=== PATIENT | female | born 1960 | race Caucasian/White ===

== ENCOUNTER 2022-10-05 18:40 | Emergency (ER) | payer OTHER, SELFPAY ==
--- NOTE | ~2022-10-05 | XR_ITS ---
EXAMINATION: XR hip RT 2V w AP pelvis INDICATION: Right hip pain TECHNIQUE: AP view of the pelvis and two views of the right hip are obtained. COMPARISON: None available FINDINGS: There is antegrade intramedullary lindsay and interlocking intratrochanteric screw fixation of the right femur. No acute fracture is identified. There are old healed fractures of the pubic rami. There is heterotopic calcification of the right hip. IMPRESSION: 1. No acute osseous abnormality. Reviewed, dictated and finalized at location F. CUTTER
[2022-10-05 18:47] VITALS: BP 178/91; PULSE 91; RESP 18; TEMP 36.9; O2SAT 98
--- NOTE | 2022-10-05 22:00 | ED.GENADULT ---
HPI - General Adult General Chief complaint: Extremity Injury, Lower Stated complaint: injured right leg Time Seen by Provider: 10/05/22 21:00 History of Present Illness HPI narrative: 62-year-old female presenting to the emergency department for evaluation of right hip pain. Patient states approximately 6 days ago she had a fall and states that she is having worsening right hip pain. Patient states she is able to ambulate and patient was able to ambulate into the ED without assistance. Patient reports she has a lindsay in her leg from a previous fracture. Related Data Allergies Allergy/AdvReac Type Severity Reaction Status Date / Time erythromycin base Allergy Hives Verified 10/05/22 22:14 Review of Systems Review of Systems: CONSTITUTIONAL: Denies fever, chills, or sweats. EYES: Denies visual changes, redness, or discharge. ENT: Denies rhinorrhea, congestion, sore throat, or otalgia. CARDIOVASCULAR: Denies chest pain, palpitations, or edema. RESPIRATORY: Denies cough or dyspnea. GASTROINTESTINAL: Denies abdominal pain, nausea, vomiting, or diarrhea. GENITOURINARY: Denies dysuria or hematuria. SKIN: Denies rash or itching. MUSCULOSKELETAL: See HPI NEUROLOGIC: Denies headache, numbness, or weakness. Exam Narrative: APPEARANCE: Well appearing, no pain, no distress, well-nourished. HEAD: normocephalic, atraumatic. EYES: PERRLA/EOMI, conjunctivae clear. NOSE: Normal no drainage NECK: Supple. No adenopathy, no masses. RESPIRATORY: Airway patent, respirations nonlabored. Clear to auscultation bilaterally, no rales, rhonchi, wheezing. CARDIOVASCULAR: Regular rate and rhythm without murmurs rubs or gallops. ABDOMINAL: Soft, nontender, nondistended, normal bowel sounds MUSCULOSKELETAL: No ecchymosis. Normal range of motion. Reproducible right hip pain to palpation. Normal range of motion. NEURO: Alert. Cranial nerves II through XII intact. Grossly intact SKIN: Warm, dry. Normal Color Course Course Emergency Course: X-ray shows no acute fracture or dislocation. Patient was able to ambulate without issue. Patient does have reproducible tenderness to palpation. Suspect muscular contusion over fracture with normal radiographs. Patient was provided Flexeril for pain control and encouraged of close follow-up with a primary care physician. Patient was educated on reasons to return to the emergency room. All questions and concerns were addressed. Vital Signs Vital signs: Vital Signs Temperature 98.4 F 10/05/22 18:47 Pulse Rate 91 10/05/22 18:47 Respiratory Rate 18 10/05/22 18:47 Blood Pressure 178/91 H 10/05/22 18:47 Pulse Oximetry 98 10/05/22 18:47 Oxygen Delivery Room Air 10/05/22 18:47 Temperature 98.4 F 10/05/22 18:47 Pulse Rate 87 10/05/22 22:16 Respiratory Rate 16 10/05/22 22:16 Blood Pressure 202/116 H 10/05/22 22:16 Pulse Oximetry 100 10/05/22 22:16 Oxygen Delivery Room Air 10/05/22 18:47 Medical Decision Making Vital Signs Vital Signs: Vital Signs Temperature 98.4 F 10/05/22 18:47 Pulse Rate 91 10/05/22 18:47 Respiratory Rate 18 10/05/22 18:47 Blood Pressure 178/91 H 10/05/22 18:47 Pulse Oximetry 98 10/05/22 18:47 Oxygen Delivery Room Air 10/05/22 18:47 Temperature 98.4 F 10/05/22 18:47 Pulse Rate 87 10/05/22 22:16 Respiratory Rate 16 10/05/22 22:16 Blood Pressure 202/116 H 10/05/22 22:16 Pulse Oximetry 100 10/05/22 22:16 Oxygen Delivery Room Air 10/05/22 18:47 Imaging Data Radiologist's impression: Impressions Hip/Pelvis X-Ray 10/05/22 21:55 IMPRESSION: 1. No acute osseous abnormality. Discharge Plan Discharge Clinical Impression: Contusion of hip, right Patient Disposition: Home, Self-Care Condition: Stable Instructions: Antibiotic Form Additional Instructions: Tylenol and ibuprofen for pain control. Flexeril for muscle spasm. Have close follow-up with your primary care physicia
[2022-10-05 22:16] VITALS: BP 202/116; PULSE 87; RESP 16; O2SAT 100
--- NOTE | 2022-10-05 22:18 | PC.NURSE ---
Pt reporting nausea and so sick with previous Toradol IM reaction approximately 6 years ago but pt wants to try medication again. Consent received for for medication administration.
[2022-10-05] MEDS: KETOROLAC 30 MG/ML VIAL (*BKC) IM (22:24)
[2022-10-05] MEDS: ONDANSETRON HCL ODT 4 MG TABLET PO (22:25)
[2022-10-05 22:42] VITALS: BP 172/110; PULSE 80; RESP 16; O2SAT 100
== END 2022-10-05 22:43 | disposition home or self-care (01) ==
PROVIDERS: Emergency Provider Emergency Medicine; PCP Pediatrics
DX: S70.01XA Contusion of right hip, initial encounter (principal); W19.XXXA Unspecified fall, initial encounter
CPT/HCPCS: 73502; 96372; 99283; A9270; J1885

== ENCOUNTER 2023-12-17 17:51 | Inpatient (IN) | payer MEDICAID, SELFPAY ==
[2023-12-17] VITALS (23 sets, daily range): BP systolic 115–171; BP diastolic 53–82; PULSE 92–130; RESP 18–34; TEMP 36.9–37.6; O2SAT 91–100
--- NOTE | ~2023-12-17 | XR_ITS ---
Supine and upright views of the abdomen Clinical history: NG tube placement Findings: NG tube in satisfactory position. Bowel gas pattern is nonspecific. No evidence for obstruc tion or free air. No abnormal mass lesion or calcification is seen. Osseous structures are intact. Impression: NG tube in satisfactory position. Reviewed, dictated and finalized at location . Impression: NG tube in satisfactory position.
--- NOTE | ~2023-12-17 | XR_ITS ---
Portable chest x-ray Comparison: 12/18/2023 at 4:10 AM Clinical History: Cardiac arrest Findings: Endotracheal tube, NG tube, and right IJ line are in place. Extensive right upper lobe pne umonia with mild right lower lobe pneumonia is again present. Minimal haziness left lung base. Cardi omediastinal silhouette is stable. Bones and soft tissues are unremarkable. Impression: Stable stable support tubes. Stable extensive right lung pneumonia, especially right upper lobe. Mild haziness left lung base could reflect additional pneumonia. Reviewed, dictated and finalized at location . Impression: Stable stable support tubes. Stable extensive right lung pneumonia, especially right upper lobe. Mild haziness left lung base could reflect additional pneumonia.
--- NOTE | ~2023-12-17 | XR_ITS ---
Portable chest x-ray Comparison: 12/17/2023 Clinical History: Tube placement Findings: Endotracheal tube and NG tube are in satisfactory positions. There is extensive right lung consolidation, with focal airspace disease in the retrocardiac region. Cardiomediastinal silhouette is stable. Bones and soft tissues are unremarkable. Impression: Support tubes, as above. Extensive right lung pneumonia. Probable focal pneumonia left lower lobe. Reviewed, dictated and finalized at location . Impression: Support tubes, as above. Extensive right lung pneumonia. Probable focal pneumonia left lower lobe.
--- NOTE | ~2023-12-17 | CT_ITS ---
EXAMINATION: CT abdomen pelvis wo con DATE: 12/18/2023 08:51 INDICATION: Abdominal distention TECHNIQUE: Computed tomography (CT) of the abdomen and pelvis was performed without intravenous contr ast. Automated exposure control and iterative reconstruction technique were employed. The dose-length product was 321.78 mGy-cm. COMPARISON: Chest CT dated 12/27/2023 FINDINGS: Significant interval development of consolidation without significant associated volume loss in the r ight lower lobe, to lesser degree in the left lower lobe and increase in more patchy airspace opacity right middle lobe consistent with progression of multifocal pneumonia. Calcified right lower lobe no dule along with calcified right hilar lymph nodes and a small splenic calcification, all consistent w ith old granulomatous disease. No pleural effusion. Heart size is normal. No pericardial effusion. Nasogastric tube tip in the body of the stomach. Cholecystectomy clips at the gallbladder fossa. Live r and pancreas appear normal. There are heterogeneous bilateral delayed nephrograms with excreted con trast in the bilateral renal collecting systems likely representing residual contrast from CT study p erformed over 12 hours prior consistent with renal insufficiency. There is increased density with ill -defined margins and surrounding stranding in the region of the left adrenal gland with additional st randing also seen in the region of the obscured right adrenal gland. There is moderate amount of stoo l scattered throughout the colon primarily in the cecum. No bowel obstruction. Taylor catheter and bayron e excreted contrast within the decompressed bladder. Uterus and bilateral adnexa are unremarkable. No free intraperitoneal gas or fluid. No pathologically enlarged abdominal or pelvic lymphadenopathy. T here is streak artifact associated with an antegrade intramedullary lindsay and interlocking femoral neck screw fixation at the proximal right femur. IMPRESSION: 1. Interval progression of multifocal pneumonia in the right middle and bilateral lower lobes. 2. Thickening of at least the left adrenal gland and bilateral . Renal stranding which suggests nonsp ecific adrenal congestion which can be seen in setting of adrenal insufficiency and can't proceed adr enal hemorrhage. In setting etiologies can include sepsis, disseminated intravascular coagulation (DI C), anticoagulation and less likely adrenal thrombosis given the bilaterality. 3. Bilateral heterogeneous persistent delayed nephrograms without evident obstruction which can be se en in the setting of systemic hypotension, sepsis, acute tubular necrosis, bilateral renal artery joel nosis or renal vein thrombosis. Reviewed, dictated and finalized at location B. IMPRESSION: 1. Interval progression of multifocal pneumonia in the right middle and bilater al lower lobes. 2. Thickening of at least the left adrenal gland and bilateral . Renal strandin g which suggests nonspecific adrenal congestion which can be seen in setting of adrenal insufficiency and can't proceed adrenal hemorrhage. In setting etiolog ies can include sepsis, disseminated intravascular coagulation (DIC), anticoagu lation and less likely adrenal thrombosis given the bilaterality. 3. Bilateral heterogeneous persistent delayed nephrograms without evident obstr uction which can be seen in the setting of systemic hypotension, sepsis, acute tubular necrosis, bilateral renal artery stenosis or renal vein thrombosis.
--- NOTE | ~2023-12-17 | XR_ITS ---
EXAMINATION: XR chest 1V portable DATE: 12/17/2023 18:25 INDICATION: Low oxygen saturation. TECHNIQUE: A single frontal view of the chest was obtained on 2 radiographs. COMPARISON: None. FINDINGS: There are airspace opacities in right lung, worst in the mid and upper lung zones, consiste nt with pneumonia. No pleural effusion or pneumothorax. The heart size is normal. IMPRESSION: 1. Right-sided pneumonia. Reviewed, dictated and finalized at location E. IMPRESSION: 1. Right-sided pneumonia.
--- NOTE | ~2023-12-17 | CT_ITS ---
EXAMINATION: CTA chest PE protocol DATE: 12/17/2023 20:18 CDT INDICATION: Dyspnea. Pneumonia. TECHNIQUE: Computed tomographic angiography (CTA) of the chest was performed with 100 mL Omnipaque-35 0 intravenous contrast. The dose-length product was 149.84 mGy-cm. Maximum intensity projection 3D-re constructions of the aorta and other arteries were constructed by the technologist on a separate work station. COMPARISON: None. FINDINGS: Study is technically adequate. Evaluation of the lower lobe subsegmental pulmonary arteries limited by motion artifact. No thoracic lymphadenopathy. No evidence for aortic aneurysm or dissecti on. Heart size normal. No significant pleural or pericardial effusion. There is emphysema. There is e xtensive right upper lobe airspace consolidation as well as patchy airspace disease of the right midd le and bilateral lower lobes, consistent with multifocal pneumonia. Mild wedge-shaped deformity of mu ltiple upper thoracic vertebra, likely chronic. IMPRESSION: 1. Multifocal bilateral pneumonia, most confluent in the right upper lobe. 2: No large central pulmonary embolism. Evaluation of lower lobe peripheral pulmonary arteries limit ed by motion. Reviewed, dictated and finalized at location A. IMPRESSION: 1. Multifocal bilateral pneumonia, most confluent in the right upper lobe. 2: No large central pulmonary embolism. Evaluation of lower lobe peripheral pu lmonary arteries limited by motion.
--- NOTE | ~2023-12-17 | XR_ITS ---
Portable chest x-ray Comparison: 12/18/2023 at 3:04 AM Clinical History: Line placement Findings: Endotracheal tube, NG tube, and right IJ line are in satisfactory positions. Extensive den se right upper lobe consolidation is present. There is more patchy consolidation the right lower lobe , right middle lobe, and in the retrocardiac region. Cardiomediastinal silhouette is stable. Bones a nd soft tissues are unremarkable. Impression: Extensive right lung pneumonia, especially right upper lobe, with additional focal involvement in the left lower lobe. Support tubes, as above. No pneumothorax. Reviewed, dictated and finalized at location M. Impression: Extensive right lung pneumonia, especially right upper lobe, with additional fo lucy involvement in the left lower lobe. Support tubes, as above. No pneumothorax.
--- NOTE | ~2023-12-17 | CT_ITS ---
EXAMINATION: CT brain wo con DATE: 12/18/2023 08:51 INDICATION: Anisocoria. TECHNIQUE: Computed tomography (CT) of the head was performed without intravenous contrast. The mA wa s adjusted according to patient size. Iterative reconstruction technique was employed. The dose-lengt h product was 605.33 mGy-cm. COMPARISON: None FINDINGS: There is no intracranial hemorrhage, acute infarction, or abnormal intracranial mass lesion . There is a small old infarct in left frontal lobe. The ventricles are normal in size. There is a peña rgical clip in left suprasellar cistern. There is an embolization coil mass in left suprasellar ciste rn. There is mild mucosal thickening in the ethmoid sinuses. There are changes of left frontal latera l craniotomy. There is dehiscence of lateral wall and roof of left orbit. There are likely changes of ocular lens replacement surgeries. There is dehiscence of the anterior and posterior sandoval of the le ft frontal sinus, which is opacified. The mastoid air cells are normal. IMPRESSION: 1. 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 Reviewed, dictated and finalized at location A.
--- NOTE | 2023-12-17 17:59 | ECG_ITS ---
Measurements Intervals [place] Rate: 127 P: 68 OH: 120 QRS: 71 QRSD: 94 T: -69 QT: 260 AVG RR 472 QTc: 335 QTcB 378 QTcF 333 Interpretive Statements SINUS TACHYCARDIA ST DEVIATION AND MODERATE T-WAVE ABNORMALITY, CONSIDER LATERAL ISCHEMIA [-01+ mV T WAVE IN I/aVL/V5/V6] ST DEVIATION AND MODERATE T-WAVE ABNORMALITY, CONSIDER INFERIOR ISCHEMIA [-01+ mV T WAVE IN II/aVF] ABNORMAL ECG SEE SCANNED COPY FOR SIGNATURE MTDD
[2023-12-17 18:07] LABS: Hematocrit 40.3 % (37.0-47.0); Hemoglobin 12.7 g/dL (12.0-15.0); Mean Corpuscular HGB Conc 31.5 g/dl (32-36); Mean Corpuscular Hemoglobin 32.6 pg (26-34); Mean Corpuscular Volume 103.3 fl (80-100); Mean Platelet Volume 9.5 fl (7.4-10.4); Platelet Count Result 339 k/mm3 (150-375); Red Cell Distribution Width 14.2 % (11.5-14.5); White Blood Count 13.4 K/mm3 (4.5-10.0)
[2023-12-17 18:18] LABS: Alanine Aminotransferase 21 U/L (6-35); Albumin Level 4.3 g/dL (3.5-5.1); Alkaline Phosphatase 118 U/L (38-126); Anion Gap 15 mmol/L (4-12); Aspartate Amino Transferase 44 U/L (14-36); Bilirubin,Total 0.6 mg/dL (0.2-1.3); Blood Urea Nitrogen 30 mg/dL (7-17); Calcium 9.6 mg/dL (8.4-10.2); Carbon Dioxide 19 mmol/L (22-30); Chloride 105 mmol/L (98-107); Estimated CRCL calculation 48 ml/min; Estimated Glomerular Filt Rate > 60; Glucose 123 mg/dL (65-110); Magnesium 1.8 mg/dL (1.6-2.3); Sodium 139 mmol/L (137-145)
[2023-12-17 18:19] LABS: Alveolar/Arterial O2 Gradient 595.9 mmHg; Base Excess ABG -6.8 mEq/l (+/-2.0); Carboxyhemoglobin 0.9 % THb (0-2.0); Device NON-INVASIVE VENT; Fractional Inspired Oxygen 100 %; HCO3 ABG 20.3 mEq/l (22.0-26.0); Methemoglobin ABG 0.3 %THb (0-1.5); Modified Allen's Test Pass; Oxygen Content ABG 17.3 %vol (16.0-22.0); Oxygen Saturation ABG 91.5 % (95.0-100.0); Oxyhemoglobin 90.5 % THb (90.0-100.0); PCO2 ABG 46.9 mmHg (35.0-45.0); PO2 ABG 70.2 mmHg (80.0-100.0); Reduced Hemoglobin 8.3 %THb (0-5.0); Site Drawn LEFT RADIAL; Total Hemoglobin 13.6 g/dL (12.0-18.0); pH ABG 7.255 (7.350-7.450)
[2023-12-17] MEDS: IPRATROPIUM BR 0.02% INH SOLN 0.5 MG/2.5 ML VIAL 1 MG INHALATION (18:26)
[2023-12-17] MEDS: ALBUTEROL SULFATE NEB 2.5 MG/3 ML INH 15 MG INHALATION (18:26)
[2023-12-17 18:30] LABS: NT Pro B Type Natriuretic Pept 2850 pg/mL (19.9-100); Troponin I < 0.012 ng/mL (0.000-0.034)
[2023-12-17] MEDS: methylPREDNISolone SOD SUCC 125 MG VIAL 40 MG IV PUSH (18:30)
[2023-12-17 18:35] LABS: D Dimer 1.74 ug/mL (<0.48)
[2023-12-17 18:43] LABS: Band Neutrophils Percent 28 % (0-6); Eosinophils Absolute Manual 0.13 K/mm3 (0.02-0.50); Eosinophils Percent Manual 1 % (0-4); Lymphocytes Absolute Manual 2.94 K/mm3 (1.1-4.5); Lymphocytes Percent Manual 22 % (18-44); Monocytes Absolute Manual 0.67 K/mm3 (0.1-0.90); Monocytes Percent Manual 5 % (3-9); Neutrophils Absolute Manual 9.64 K/mm3 (1.7-7.2); Neutrophils Percent Manual 44 % (46-73); Total Cells Counted 100
[2023-12-17 18:45] LABS: Platelet Estimate Adequate (Adequate); Schistocytes None Seen
[2023-12-17 19:26] LABS: Influenza A QL RT-PCR Negative (Negative); Influenza B QL RT-PCR Negative (Negative); RSV RNA, RT-PCR Negative (Negative); SARS-CoV-2 RNA PCR Negative (Negative)
--- NOTE | 2023-12-17 19:40 | PC.NURSE ---
report to Deborah SANFORD
[2023-12-17] MEDS: DOXYCYCLINE 100 MG/NS 100 ML 100 MG/100 ML BAG IVPB (20:10)
--- NOTE | 2023-12-17 20:16 | ED.SOB ---
HPI - SOB/Dyspnea General Chief Complaint: Shortness of Breath/Dyspnea Stated Complaint: respiratory distress Time Seen by Provider: 12/17/23 17:59 History of Present Illness HPI Narrative: patient presents with shortness of breath that started today, with the cough. She states before this she had no issues, she does occasionally smoke but has no history of COPD or heart failure. When EMS arrived they were unable to detect a good oxygen saturation and immediately post start on CPAP, and were unable to get her oxygen above 85% Related Data Allergies Allergy/AdvReac Type Severity Reaction Status Date / Time erythromycin base Allergy Hives Verified 12/17/23 18:35 Review of Systems Review of Systems: CONST: No fever. HEENT: No sore throat C/V: chest tightness RESP: cough and trouble breathing GI: no abdominal pain : No dysuria. M/S: No joint pain. SKIN: No rash. NEURO: [No headache or focal numbness or weakness] PSYCH: [No depression] Exam Narrative: EXAMINATION OF ORGAN SYSTEMS/BODY AREAS: Constitutional: Vital signs per nursing GENERAL: extremely dyspneic HEAD: Normal with no signs of head trauma. EYES: EOMI, conjunctiva normal ENT: Hearing grossly intact LUNGS: the respirations, dyspneic, crackles and diminished lung sounds bilaterally worse on right side HEART: [Regular rate and rhythm] ABD: [Soft], [nontender to palpation] EXT: Normal range of motion SKIN: [No rashes or lesions.] NEURO: [Alert and oriented x 3. No gross focal sensory or strength deficits.] PSYCH: Normal affect Course Vital Signs Vital signs: Vital Signs Temperature 98.5 F 12/17/23 17:49 Pulse Rate 130 H 12/17/23 17:49 Respiratory Rate 28 H 12/17/23 17:49 Blood Pressure 141/75 H 12/17/23 17:49 Pulse Oximetry 95 12/17/23 17:49 Oxygen Delivery Room Air 12/17/23 17:49 Temperature 98.6 F 12/17/23 18:00 Pulse Rate 92 12/17/23 18:45 Respiratory Rate 26 H 12/17/23 20:09 Blood Pressure 115/66 12/17/23 18:45 Pulse Oximetry 95 12/17/23 18:45 Oxygen Delivery BiPAP 12/17/23 20:09 MDM - SOB/Dyspnea MDM Narrative Medical decision making narrative: patient presenting with cough and shortness of breath, she was initially saturating only 85% on CPAP, she was immediately placed on monitors, IV access obtained, and transferred to [facility] here, and on maximum of oxygen is saturating 95%. I am concerned for possible PE, pneumonia, pneumothorax, possibly new onset heart failure. Chest x-ray my own independent interpretation showing opacity to the right lung. ABG does show acidosis with some CO2 retention, D-dimer is elevated so CT PE is obtained which is thankfully normal but does show large amount of pneumonia to the right lung. EKG here shows sinus tachycardia at rate of 127, no obvious ST elevations or depressions concerning for ischemia. Normal axis. Normal ME, QRS, QTC. I did update the patient on the findings and plan for admission and she is agreeable to plan. Discussed with hospitalist for admission. I did start her on antibiotics. Lab Data 12/17/23 18:01 12/17/23 18:01 Labs: Lab Results 12/17/23 12/17/23 Range/Units 18:01 18:44 WBC 13.4 H (4.5-10.0) K/mm3 RBC 3.90 L (4.2-5.4) M/mm3 Hgb 12.7 (12.0-15.0) g/dL Hct 40.3 (37.0-47.0) % MCV 103.3 H (80-100) fl MCH 32.6 (26-34) pg MCHC 31.5 L (32-36) g/dl RDW 14.2 (11.5-14.5) % Plt Count 339 (150-375) k/mm3 MPV 9.5 (7.4-10.4) fl Immature Gran % (Auto) Not Reportable Neut % (Auto) Not Reportable Lymph % (Auto) Not Reportable [place] % (Auto) Not Reportable Eos % (Auto) Not Reportable Baso % (Auto) Not Reportable Lymph # (Auto) Not Reportable [place] # (Auto) Not Reportable Eos # (Auto) Not Reportable Baso # (Auto) Not Reportable Abs Immat Gran (auto) Not Reportable Absolute Neuts (auto) Not Reportable Absolute
--- NOTE | 2023-12-17 20:57 | PM.IMHP ---
H&P: HPI History of Present Illness Date/Time: 12/17/23 20:57 Chief Complaint: sob Narrative: This is a 63-year-old female with past medical history significant for hypertension, tobacco use, presented to the emergency room with complaints of shortness of breath and cough productive of sputum she was found to have an oxygen saturation at 85% and placed on BiPAP preliminary workup was significant for right-sided pneumonia.At the time of my visit patient is on BiPAP unable to provide all contribute to meaningful history taking. EXAMINATION: CTA chest PE protocol DATE: 12/17/2023 20:18 CDT INDICATION: Dyspnea. Pneumonia. TECHNIQUE: Computed tomographic angiography (CTA) of the chest was performed with 100 mL Omnipaque-350 intravenous contrast. The dose-length product was 149.84 mGy-cm. Maximum intensity projection 3D-reconstructions of the aorta and other arteries were constructed by the technologist on a separate workstation. COMPARISON: None. FINDINGS: Study is technically adequate. Evaluation of the lower lobe subsegmental pulmonary arteries limited by motion artifact. No thoracic lymphadenopathy. No evidence for aortic aneurysm or dissection. Heart size normal. No significant pleural or pericardial effusion. There is emphysema. There is extensive right upper lobe airspace consolidation as well as patchy airspace disease of the right middle and bilateral lower lobes, consistent with multifocal pneumonia. Mild wedge-shaped deformity of multiple upper thoracic vertebra, likely chronic. IMPRESSION: 1. Multifocal bilateral pneumonia, most confluent in the right upper lobe. 2:? No large central pulmonary embolism. Evaluation of lower lobe peripheral pulmonary arteries limited by motion. EXAMINATION: XR chest 1V portable DATE: 12/17/2023 18:25 INDICATION: Low oxygen saturation. TECHNIQUE: A single frontal view of the chest was obtained on 2 radiographs. COMPARISON: None. FINDINGS: There are airspace opacities in right lung, worst in the mid and upper lung zones, consistent with pneumonia. No pleural effusion or pneumothorax. The heart size is normal. IMPRESSION: 1. Right-sided pneumonia. Review of Systems Review of Systems: shortness of breath cough ROS unobtainable: Yes unobtainable due to medical condition ( on BiPAP) [facility] Past Medical History Medical History Hypertension Tobacco abuse Social History Social History Smoking status: Smoker, status unknown Spiritual care concerns: No Meds Home Medications and Allergies Home Medications Medication Instructions Recorded Confirmed Type amlodipine 5 mg tablet 5 mg PO DAILY 12/18/23 12/18/23 History brimonidine 0.2 % eye drops 1 drp ophthalmic (eye) TID 12/18/23 12/18/23 History cyanocobalamin (vitamin B-12) 1,000 mcg IM MONTHLY 12/18/23 12/18/23 History 1,000 mcg/mL injection solution dextroamphetamine-amphetamine 30 30 mg PO DAILY 12/18/23 12/18/23 History mg tablet hydrocodone 7.5 mg-acetaminophen 1 tablet PO Q4H PRN Pain (Scale 12/18/23 12/18/23 History 325 mg tablet Score 4-6) latanoprost 0.005 % eye drops 1 drp ophthalmic (eye) HS 12/18/23 12/18/23 History lorazepam 0.5 mg tablet 0.5 mg PO HS 12/18/23 12/18/23 History pregabalin 150 mg capsule 150 mg PO TID 12/18/23 12/18/23 History timolol maleate 0.5 % eye drops 1 drp ophthalmic (eye) BID 12/18/23 12/18/23 History vilazodone 40 mg tablet 40 mg PO DAILY 12/18/23 12/18/23 History Allergies Allergy/AdvReac Type Severity Reaction Status Date / Time erythromycin base Allergy Hives Verified 12/17/23 18:35 Vital Signs Vital Signs - 24 hr 12/17/23 17:49 12/17/23 18:09 12/17/23 18:14 Temperature 98.5 F Pulse Rate 130 H Respiratory Rate 28 H 28 H Blood Pressure 141/75 H Pulse Oximetry 95 Oxygen Delivery Room Air BiPAP BiPAP 12/17/23 18:14 12/17/23 17:56
[2023-12-17 21:17] LABS: Non-Invasive Inspiratory Pressure 16 CMH2O; Non-Invasive Vent Rate 18 /MIN
[2023-12-17 21:18] LABS: Non-Invasive Expiratory Pressure 9 CMH2O
[2023-12-17] MEDS: POTASSIUM CHLORIDE INJ 40 MEQ in SODIUM CHLORIDE 0.9% IV 500 ML 130 MEQ IVPB (21:44)
[2023-12-17] MEDS: LORazepam INJ (*CRX) 2 MG/ML VIAL 0.5 MG IV PUSH (22:46)
[2023-12-18] VITALS (59 sets, daily range): BP systolic 46–212; BP diastolic 27–102; PULSE 80–128; RESP 18–42; TEMP 34.5–37.2; O2SAT 60–100; BMI 20.1
--- NOTE | 2023-12-18 | ECHO_ITS ---
Patient Info Name: Keyana Shultz Age: 63 years : 1960 Gender: Female Ht: 65 in Wt: 121 lbs BSA: 1.58 m2 HR: 121 bpm BP: 98 / 72 mmHg Heart Rhythm: Indeterminant Technical Quality: Poor Exam Date: 12/18/2023 10:05 AM Exam Location: Echo Lab Patient Status: Inpatient Admit Date: 12/17/2023 Staff Ordering Physician: Amrik Jesus MD Optometric Coordinator: Yady Nichole RDCS Attending Provider: Amrik Jesus MD Referring Physician: Ann Marie LE; Exam Type: CA echo doppler color flow Study Info Indications - lactic acidosis Complete two-dimensional, color flow and Doppler transthoracic echocardiogram is performed. Reason for Poor Study: poor patient cooperation Summary 1. Technically difficult study with limited views. 2. Left ventricular chamber dimension is normal. 3. Left ventricular systolic function is lower limits of normal, estimated at 50-55%. 4. The left ventricular diastolic function is grade I diastolic dysfunction. 5. Right ventricular systolic function is normal. 6. There is mild tricuspid valve regurgitation. Left Ventricle Left ventricular chamber dimension is normal. Left ventricular systolic function is lower limits of normal, estimated at 50-55%. There is no increased left ventricular wall thickness. The left ventricular diastolic function is grade I diastolic dysfunction. Right Ventricle Right ventricular chamber dimension is normal. Right ventricular systolic function is normal. Left Atria Left atrial chamber dimension is normal. Right Atria Right atrial chamber dimension is normal. Aortic Valve The aortic valve is not well visualized. There is no aortic valve stenosis. There is no aortic valve regurgitation. Pulmonic Valve The pulmonic valve is not well visualized. Mitral Valve There is trace mitral valve regurgitation. Tricuspid Valve There is mild tricuspid valve regurgitation. Pericardium/Pleural There is no pericardial effusion. Inferior Vena Cava Normal inferior vena cava with >50% collapse upon inspiration consistent with normal right atrial pressure, 3 mmHg. Aorta The aortic root size at the sinus of Valsalva is normal. Left Ventricular Outflow Tract Name Value Normal LVOT 2D LVOT Diameter 2.0 cm LVOT Doppler LVOT Peak Gradient 2 mmHg LVOT Mean Gradient 1 mmHg LVOT VTI 13 cm LVOT VTI/AV VTI Ratio 0.7 LVOT Stroke Volume 40 ml LVOT CO 4.4 l/min LVOT CI 2.8 l/min/m2 Pulmonic Valve Name Value Normal RVOT Doppler RVOT Peak Gradient 1 mmHg PV Doppler PV Peak Gradient 3 mmHg Mitral Valve
[2023-12-18 00:11] LABS: Alveolar/Arterial O2 Gradient 424.1 mmHg; Base Excess ABG -9.7 mEq/l (+/-2.0); Fractional Inspired Oxygen 90 %; HCO3 ABG 16.8 mEq/l (22.0-26.0); Oxygen Content ABG 20.2 %vol (16.0-22.0); PO2 ABG 177.6 mmHg (80.0-100.0); PO2 FiO2 Ratio Arterial Blood 1.97 %; Total Hemoglobin 14.4 g/dL (12.0-18.0)
[2023-12-18 00:13] LABS: Device NON-INVASIVE VENT; Modified Allen's Test Pass; Site Drawn LEFT RADIAL; pH ABG 7.253 (7.350-7.450)
[2023-12-18 00:14] LABS: Non-Invasive Expiratory Pressure 9 CMH2O; Non-Invasive Inspiratory Pressure 16 CMH2O; Non-Invasive Vent Rate 18 /MIN
[2023-12-18] MEDS: MORPHINE SULFATE (*CRX) 2 MG/ML INJ IV PUSH (00:44)
[2023-12-18] MEDS: LORazepam INJ (*CRX) 2 MG/ML VIAL 1 MG IV PUSH (00:53)
--- NOTE | 2023-12-18 00:59 | PC.NURSE ---
Addendum entered by Ray Carter RN 12/18/23 01:03: Patient unable to answer admission questions. Will discuss with son when he calls back. Original Note: [id number]: RN called son, Ray, to give a status update. Message left requesting he call IMU.
[2023-12-18 01:05] LABS: Appearance Urine Clear (Clear); Bacteria Urine None Seen /hpf; Bilirubin Urine Negative (Negative); Blood Urine Negative (Negative); Color Urine Yellow (Yellow); Glucose Urine UA Negative (Negative); Ketones Urine Negative (Negative); Leukocyte Esterase Ur Negative LEU/UL (Negative); Nitrate Urine Negative (Negative); Protein Urine 1+ mg/dL (Negative); RBC Urine 0-2 /hpf (0-2); Squamous Epithelial Cell Urine Occasional /hpf (Few); WBC Urine 0-5 /hpf (0-3); pH Urine 6.5 (5.0-9.0)
[2023-12-18 01:10] LABS: Specific Grav Ur 1.052 (1.001-1.035)
[2023-12-18 01:11] LABS: Add Urine Microscopic? YES
--- NOTE | 2023-12-18 01:18 | ADMGEN ---
[id number] This patient, Keyana Shultz, was admitted to IMU Room 213-01. Patient/family oriented to hospital policies and general routines including ID bracelet, bed and alarms, visiting hours, pain management, procedures, bathroom and other care routines, personal items, smoking policy, room service/diet, and visiting hours. Information on how to activate the Rapid Response Team has been discussed. Patient/Family are encouraged to report perceived risks to care and to ask questions if they do not understand what they are told or what they should do.
[2023-12-18 02:18] LABS: Alveolar/Arterial O2 Gradient 436.3 mmHg; Base Excess ABG -17.5 mEq/l (+/-2.0); Fractional Inspired Oxygen 80 %; Oxygen Content ABG 20.2 %vol (16.0-22.0); Oxygen Saturation ABG 96.1 % (95.0-100.0); Oxyhemoglobin 96.4 % THb (90.0-100.0); PCO2 ABG 29.4 mmHg (35.0-45.0); PO2 ABG 103.2 mmHg (80.0-100.0); PO2 FiO2 Ratio Arterial Blood 1.29 %; Total Hemoglobin 14.8 g/dL (12.0-18.0)
[2023-12-18 02:19] LABS: Device NON-INVASIVE VENT; Modified Allen's Test Pass; Site Drawn RIGHT RADIAL; pH ABG 7.149 (7.350-7.450)
[2023-12-18 02:20] LABS: Non-Invasive Expiratory Pressure 9 CMH2O; Non-Invasive Inspiratory Pressure 16 CMH2O; Non-Invasive Vent Rate 18 /MIN
--- NOTE | 2023-12-18 02:45 | PC.NURSE ---
PT Transfered from IMU on Bipap pt talking confused pulling at mask pt mottled up to chest placed on monitor prepared for intubation. report recieved from David
--- NOTE | 2023-12-18 02:48 | PC.NURSE ---
0248: RN attempted to call son to inform him of room change and status update. RN left message.
[2023-12-18] MEDS: SODIUM CHLORIDE 0.9% IV 1,000 ML 999 ML IV CONT (03:30)
[2023-12-18] MEDS: FENTANYL 2,500MCG/NS250ML(*CRX 2,500 MCG/250 ML BAG IV CONT (03:54)
[2023-12-18] MEDS: MIDAZOLAM 100MG/NS 100ML(*CRX) 100 MG/100 ML BAG IV CONT (03:55)
[2023-12-18] MEDS: SODIUM BICARBONATE 8.4% 50 MEQ/50 ML SYRINGE 100 MEQ IV PUSH ×2 (04:00→06:57)
[2023-12-18] MEDS: PIPERACILLN/TAZ 3.375GM/NS50ML 3.375 GM/50 ML BAG IVPB (04:15)
[2023-12-18 04:21] LABS: Alveolar/Arterial O2 Gradient 517.1 mmHg; Base Excess ABG -20.8 mEq/l (+/-2.0); Carboxyhemoglobin 0.2 % THb (0-2.0); Fractional Inspired Oxygen 100 %; HCO3 ABG 12.5 mEq/l (22.0-26.0); Methemoglobin ABG 0.4 %THb (0-1.5); Oxygen Content ABG 18.8 %vol (16.0-22.0); Oxyhemoglobin 96.3 % THb (90.0-100.0); PO2 ABG 131.6 mmHg (80.0-100.0); PO2 FiO2 Ratio Arterial Blood 1.32 %; Reduced Hemoglobin 3.1 %THb (0-5.0); Total Hemoglobin 13.7 g/dL (12.0-18.0)
[2023-12-18 04:24] LABS: pH ABG 6.906 (7.350-7.450)
[2023-12-18 04:25] LABS: Device VENTILATOR; PCO2 ABG 64.3 mmHg (35.0-45.0); Site Drawn LEFT FEMORAL
[2023-12-18 04:26] LABS: Arterial Blood Gas PEEP 5 cmH2O; Arterial Blood Gas Tidal Volume 400 ml; Arterial Blood Gas Vent Mode CMV; Arterial Blood Gas Ventilator rate 18 /MIN
[2023-12-18] MEDS: VANCOMYCIN 1,250 MG/NS 250 ML 1,250 MG/250 ML BAG 166.67 MG IVPB (04:45)
[2023-12-18 04:58] LABS: Hematocrit 36.1 % (37.0-47.0); Hemoglobin 11.7 g/dL (12.0-15.0); Mean Corpuscular HGB Conc 32.4 g/dl (32-36); Mean Corpuscular Hemoglobin 33.3 pg (26-34); Mean Corpuscular Volume 102.8 fl (80-100); Mean Platelet Volume 9.7 fl (7.4-10.4); Platelet Count Result 231 k/mm3 (150-375); Red Blood Count 3.51 M/mm3 (4.2-5.4); Red Cell Distribution Width 14.5 % (11.5-14.5); White Blood Count 2.5 K/mm3 (4.5-10.0)
--- NOTE | 2023-12-18 04:58 | WPDPROCEDUR ---
Procedures Central Line Placement Right IJ: Consent: I have discussed with the patient and/or surrogate, the non-emergent placement of a central venous catheter, including its clinical necessity/indication and associated potential risks and complications. The patient and/or surrogate understand(s) and acknowledge(s) the need to proceed with central venous catheter insertion as an important element of the patient's clinical management. Time Out Performed: Yes Patient Position: trendelenburg Patient placed on monitor/pulse ox: Yes Provider Prep: mask, sterile gown, sterile gloves, Max. sterile barrier precautions, cap, hand hygiene with conventional soap/water or alcohol based hand rub and emergent ? sterile barriers not used Central line prep: 2% Chlorhexidine scrub Sterile US Technique with sterile gel/sterile probe covers: Yes Central line lumen inserted: triple Micronesian: 16 Length (cm): 16 Post Procedure: sutured in place, good blood return, all ports aspirated, flushed, capped, transparent dressing, hemostatic product, antimicrobial product and aseptic technique maintained throughout procedure Post procedure x-ray: tip of catheter in good position and no pneumothorax seen Patient tolerated procedure: no complications Complications: none Intubation Intubation Date: 12/18/23 Intubation Time: 02:30 Sedative: etomidate Mg given: 30 Paralytic: rocuronium Mg given: 60 Laryngoscope: fiber optic video scope Assist device used: fiber optic device ET tube size: 7.5 Tube secured depth (cm): 24 Tube secured location: lips Tube placement confirmation: visualized tube passing through cords, equal breath sounds bilaterally, no breath sounds over epigastrium and confirmation by capnometry
[2023-12-18] MEDS: RAPID SEQUENCE INTUBATION KIT 1 EACH (05:07)
[2023-12-18 05:08] LABS: Alanine Aminotransferase 26 U/L (6-35); Albumin Level 2.7 g/dL (3.5-5.1); Alkaline Phosphatase 101 U/L (38-126); Anion Gap 14 mmol/L (4-12); Aspartate Amino Transferase 89 U/L (14-36); Bilirubin,Total 0.6 mg/dL (0.2-1.3); Blood Urea Nitrogen 35 mg/dL (7-17); Calcium 7.9 mg/dL (8.4-10.2); Carbon Dioxide 19 mmol/L (22-30); Chloride 111 mmol/L (98-107); Estimated CRCL calculation 34 ml/min; Estimated Glomerular Filt Rate 41; Glucose 86 mg/dL (65-110); Potassium 3.2 mmol/L (3.4-5.0); Sodium 144 mmol/L (137-145)
[2023-12-18 05:11] LABS: Lactic Acid Reflex 8.6 mmol/L (0.7-2.0)
[2023-12-18] MEDS: SODIUM BICARBONATE 8.4% 150 MEQ in WATER, STERILE FOR INJECTION 950 ML 100 MEQ IV CONT (05:21)
[2023-12-18 05:41] LABS: Band Neutrophils Percent 5 % (0-6); Lymphocytes Absolute Manual 1.37 K/mm3 (1.1-4.5); Metamyelocytes Percent 2 %; Monocytes Percent Manual 12 % (3-9); Neutrophils Absolute Manual 0.77 K/mm3 (1.7-7.2); Neutrophils Percent Manual 26 % (46-73); Nucleated Red Blood Cells 2 %; Total Cells Counted 100
[2023-12-18 05:42] LABS: Platelet Estimate Adequate (Adequate)
[2023-12-18 05:43] LABS: Burr Cells 3+; Schistocytes None Seen
[2023-12-18] MEDS: CENTRAL LINE FLUSH 10 ML IV PUSH (05:52)
[2023-12-18 06:17] LABS: Alveolar/Arterial O2 Gradient 554.5 mmHg; Base Excess ABG -13.7 mEq/l (+/-2.0); Carboxyhemoglobin 0.5 % THb (0-2.0); Fractional Inspired Oxygen 100 %; HCO3 ABG 16.4 mEq/l (22.0-26.0); Methemoglobin ABG 0.1 %THb (0-1.5); Oxygen Content ABG 18.1 %vol (16.0-22.0); Oxygen Saturation ABG 95.2 % (95.0-100.0); PCO2 ABG 55.8 mmHg (35.0-45.0); PO2 ABG 102.7 mmHg (80.0-100.0); PO2 FiO2 Ratio Arterial Blood 1.03 %; Reduced Hemoglobin 3.4 %THb (0-5.0); Total Hemoglobin 13.3 g/dL (12.0-18.0)
[2023-12-18 06:25] LABS: pH ABG 7.085 (7.350-7.450)
[2023-12-18 06:26] LABS: Arterial Blood Gas Vent Mode CMV; Arterial Blood Gas Ventilator rate 22 /MIN; Device VENTILATOR; Site Drawn LEFT BRACHIAL
[2023-12-18 06:27] LABS: Arterial Blood Gas PEEP 5 cmH2O; Arterial Blood Gas Tidal Volume 400 ml
[2023-12-18] MEDS: CALCIUM GLUC 2,000 MG/NS 100ML 2,000 MG/100 ML BAG 100 MG IVPB (06:58)
[2023-12-18 07:25] LABS: Phosphorus 5.9 mg/dL (2.5-4.5)
[2023-12-18 07:56] LABS: Reflex Lactic Acid Yes or No Add Lactic
[2023-12-18] MEDS: LACTATED RINGERS 1,000 ML 999 ML IV CONT (08:15)
[2023-12-18] MEDS: NOREPINEPHRINE 8 MG/D5W 250 ML 8 MG/250 ML BAG 9.38 MG IV CONT (08:30)
[2023-12-18] MEDS: SODIUM BICARBONATE 8.4% 100 MEQ in WATER, STERILE FOR INJECTION 1,000 ML IV CONT (09:09)
[2023-12-18] MEDS: KCL 40 MEQ/WATER 100 ML 100 ML 25 ML IVPB (09:28)
[2023-12-18] MEDS: MINERAL OIL/WHITE PETROLATUM OINTMENT 1 APPLIC EACH EYE (09:32)
--- NOTE | 2023-12-18 09:36 | WPDCNINT ---
Assessment and Plan Assessment and plan (1) Acute hypoxic respiratory failure: Code(s): J96.01 - Acute respiratory failure with hypoxia Status: Acute Assessment and Plan: Acute Respiratory failure secondary to severe multifocal pneumonia Chest and abdominal CT and shows bilateral severe pneumonia Patient wished he was on CPAP and now intubated ABG reviewed and change tidal volume to 450 and rate to 26. Will increase PEEP and wean FiO2 down to 80% Blood cultures have been sent. Check sputum cultures Check urine Legionella and pneumococcal antigen. Check mycoplasma IgM Change antibiotics to vancomycin doxycycline and cefepime Hydrocortisone Bronchodilators (2) Septic shock: Code(s): A41.9 - Sepsis, unspecified organism; R65.21 - Severe sepsis with septic shock Status: Acute Assessment and Plan: Septic shock secondary to multifocal pneumonia Will give 1 L LR bolus. And 25% albumin Add stress dose hydrocortisone due to concern of adrenal congestion insufficiency from CT scan Continue IV fluids with bicarb Levophed titration to maintain mean arterial pressure (3) Multifocal pneumonia: Code(s): J18.9 - Pneumonia, unspecified organism Status: Acute Assessment and Plan: See above (4) OLIVA (acute kidney injury): Code(s): N17.9 - Acute kidney failure, unspecified Status: Acute Assessment and Plan: Elevated creatinine and decreased urine output likely secondary to acute kidney injury from sepsis and shock CT scan shows persistent delayed nephrograms which could be suggestive of ATN Consult nephrology Monitor urine output electrolytes and creatinine Treatment of acidosis as below Replacement of electrolytes as below Taylor is in place (5) Acidosis: Code(s): E87.20 - Acidosis, unspecified Status: Acute Assessment and Plan: Significant mixed metabolic and respiratory acidosis. Patient has received IV bicarb push and is currently on IV fluids with bicarb. I will decrease the bicarb content as patient is also hypernatremic. Ventilator settings adjusted increased mechanical ventilation Monitor (6) Anisocoria: Code(s): H57.02 - Anisocoria Status: Acute Assessment and Plan: Patient's left pupil is large irregular and not reactive to light. It appears the patient may have had surgery in the past as patient also is on eyedrops timolol and latanoprost I will check head CT at this time due to rule out any hemorrhage (7) Electrolyte abnormality: Code(s): E87.8 - Other disorders of electrolyte and fluid balance, not elsewhere classified Status: Acute Assessment and Plan: Replace low potassium Plan DVT prophylaxis -SCDs. Will check PT INR and fibrinogen level to evaluate for DIC before starting any anticoagulation Stress ulcer prophylaxis -Protonix Nutrition -npo Code Status - Full Code Spoke to patient's son at bedside and updated him with patient's status including acute respiratory failure, septic shock, acute renal failure, severe pneumonia with guarded prognosis and high risk of mortality. I answered all their questions Total Critical Care Time - 45 minutes Due to a high probability of clinically significant, life threatening deterioration, the patient required my highest level of preparedness to intervene emergently and I personally spent this critical care time directly and personally managing the patient. This critical care time included obtaining a history; examining the patient; pulse oximetry; ordering and review of studies; arranging urgent treatment with development of a management plan; evaluation of patient's response to treatment; frequent reassessment; and discussions with other providers. It was exclusive of separately billable procedures and treating other patients and teaching time. Please see Assessment and Plan section and the rest of the note for further information on patient assessment and tr
[2023-12-18] MEDS: DOXYCYCLINE 100 MG/NS 100 ML 100 MG/100 ML BAG IVPB (09:38)
[2023-12-18] MEDS: POTASSIUM BICARBONATE 25 MEQ TABEF 50 MEQ FEED TUBE (09:38)
[2023-12-18] MEDS: CEFEPIME 1 GM/NS 50 ML 1 GM/50 ML BAG IVPB (09:38)
[2023-12-18] MEDS: HYDROCORTISONE SODIUM SUCCINATE 100 MG/2 ML VIAL IV PUSH (10:00)
[2023-12-18 10:27] LABS: INR 1.8; Prothrombin Time 22.3 Seconds (11.1-14.7)
[2023-12-18 10:28] LABS: Fibrinogen 581 mg/dl (215-510); Partial Thromboplastin Time 40.2 Seconds (22.3-36.8)
[2023-12-18 10:30] LABS: Lactic Acid Reflex 11.8 mmol/L (0.7-2.0)
[2023-12-18 11:18] LABS: Alveolar/Arterial O2 Gradient 467.1 mmHg; Base Excess ABG -10.4 mEq/l (+/-2.0); Fractional Inspired Oxygen 80 %; Oxygen Content ABG 15.8 %vol (16.0-22.0); PCO2 ABG 43.5 mmHg (35.0-45.0); PO2 ABG 57.6 mmHg (80.0-100.0); PO2 FiO2 Ratio Arterial Blood 0.72 %; Total Hemoglobin 13.1 g/dL (12.0-18.0)
[2023-12-18 11:19] LABS: pH ABG 7.211 (7.350-7.450)
[2023-12-18 11:20] LABS: Arterial Blood Gas Vent Mode CMV; Arterial Blood Gas Ventilator rate 26 /MIN; Device VENTILATOR; Oxyhemoglobin 85.6 % THb (90.0-100.0); Site Drawn RIGHT BRACHIAL
[2023-12-18 11:21] LABS: Arterial Blood Gas PEEP 8 cmH2O; Arterial Blood Gas Tidal Volume 450 ml
[2023-12-18 11:32] LABS: MRSA (PCR) NOT DETECTED (NOT DETECTE)
--- NOTE | 2023-12-18 11:55 | PDCODEBLUE ---
Code Blue Note Code Blue Note Time Arrived at Code Blue: 1140 Initial Rhythm on Arrival: PE a Airway Management: Initiated bagging pt on arrival Chest Compressions: In process on arrival to bedside Cardiac Rhythm Post Code: Sinus rhythm Code Blue Summary: Patient with respiratory failure septic shock and acidosis. She was in sinus tachycardia and suddenly became bradycardic with widening of QRS and lost her pulse. . CPR was initiated and patient was taken off ventilator and bag ventilated. She was given 2 dose of epinephrine 2 doses bicarb along with CPR for approximately 6 minutes before ROSC. Post resuscitation rhythm is sinus tach with acceptable blood pressure. Chest x-ray was done and does not show any pneumothorax. Radiology report is pending. ABG reviewed. Will check electrolytes once current electrolyte supplementation is complete. Patient's son was notified by phone Additional critical care time 20 minutes
--- NOTE | 2023-12-18 12:53 | PC.NURSE ---
MTS notified of patient. Patient on ventilator support. Lost pulse twice. Code called and ROSC achieved.
--- NOTE | 2023-12-18 13:02 | PDCODEBLUE ---
Code Blue Note Code Blue Note Time Arrived at Code Blue: 1137 Initial Rhythm on Arrival: PA Airway Management: Initiated bagging pt on arrival Chest Compressions: Initiated upon arrival Cardiac Rhythm Post Code: Sinus tachycardia Code Blue Summary: I was at bedside while I was preparing to place an arterial line patient became bradycardic with rate in 30s and lost her pulse. CPR was initiated. Patient was taken off the ventilator and ventilated with Ambu bag. Patient was given 2 dose of epinephrine and CPR for close to 7 minutes before ROSC was obtained. Patient's son was at bedside and requested to discontinue further resuscitation efforts although patient did had pulse at the time of discontinuation of CPR. I spoke to the patient's son and he does not want any further resuscitation efforts and made patient DNR. He states that other family members on their way. And once everyone is here he would like to discontinue current medical therapy and make initiate comfort measures only. He does not think that his mother would want to continue with this aggressive medical therapy and current state. He initially consented for arterial line but now does not want the procedure done as he does not feel it will make any difference. I explained to him that I will I will use opioids, anxiolytics and other agents on as needed basis to promote comfort and discontinue all medical therapy, lab testing and invasive monitoring. He states that he will wait for other family members arrive before proceeding. Additional critical care time spent 25 minutes
--- NOTE | 2023-12-22 08:43 | P.DN_ITS ---
Discharge Summary Date and Time Date of : 12/18/23 Time of : 13:03 Provider Pronounced By: JUVENAL Pineda RN Probable Cause of Probable Cause of : Septic shock, acute respiratory failure, pneumonia, acute renal failure Summary Hospital Course: Keyana Shultz is a 63 year old female with unknown past medical history except hypertension and tobacco abuse presented 12/16 to ER with chief complaint of shortness of breath.? Patient also admitted to having coughing and was found to be hypoxic.? She was started on CPAP in the ER and was diagnosed with pneumonia and started on antibiotics.? She had sinus tachycardia.? She was admitted to step-down unit initially.? After arrival to step-down unit patient deteriorated with worsening hypoxia respiratory status and ABG showed Mixed acidosis. Patient was transferred to ICU intubated and a central venous catheter was placed.? Patient was given IV fluid bolus and started on sedation and vasopressors. On the morning of 12/17 when I evaluated the patient she is sedated intubated and on mechanical ventilation. Patient was treated with broad-spectrum antibiotics including vancomycin doxycycline and cefepime, ventilator was adjusted. , patient was given additional IV fluids 25% albumin stress dose hydrocortisone and continued on vasopressors. She was also given bicarb. CT scan was done which showed multifocal pneumonia. I spoke to patient's son and updated him with patient's status with guarded prognosis and high risk of mortality. Patient had a PE a cardiac arrest at 11:40 a.m.. ROSC was obtained after 6 minutes of resuscitation. And had another pea arrest at 12:37 p.m. patient was resuscitated for close to 7 minutes and ROSC was obtained. Patient's son was at bedside and he at that time decided not do further resuscitation in the event of cardiac arrest as he believed the patient would not have wanted this at this stage. He was planning to proceed with palliative extubation and comfort care and called his other family members. For any other family members arrived patient again went to PE a and was not resuscitated as per patient's wishes expressed by her son and patient was pronounced at 1:03 p.m. Additional Data Confirmation of as documented by pronouncing clinician: Pupillary Reflex, Palpable Pulses, Response to Stimuli, Heart Tones and Breath Sounds Name of Provider Notified: Dr. Eric Lewis Time Provider Notified: 13:15 Provider Requests Autopsy: No Family Requests Autopsy: No Drum Reel Cutter Notified: Yes Date [facility] Notified of : 12/18/23 Time [facility] Notified of : 13:09
[2023-12-26 16:34] LABS: Mycoplasma IgM Antibody Titer 105 U/mL
[2023-12-26 22:19] LABS: Legionella pneumophila Ag Ur NOT DETECTED
[2023-12-27 17:14] LABS: Pneumococcal Antigen Urine NOT DETECTED
== END 2023-12-18 13:03 | disposition expired | DRG 720 ==
LOC: ANHED 22:00 → ANHIMU 22:50 → ANHICU 12-18 03:53 → ANHIMU 12-19 15:01
PROVIDERS: Admitting Provider Internal Medicine; Emergency Provider Emergency Medicine; Visit Provider Internal Medicine
DX: A41.9 Sepsis, unspecified organism (principal); J96.01 Acute respiratory failure with hypoxia; I46.9 Cardiac arrest, cause unspecified; J18.9 Pneumonia, unspecified organism; N17.9 Acute kidney failure, unspecified; E87.4 Mixed disorder of acid-base balance; I10 Essential (primary) hypertension; H57.02 Anisocoria; R65.21 Severe sepsis with septic shock; Z20.822 Contact with and (suspected) exposure to COVID-19; Z72.0 Tobacco use
CPT/HCPCS: 31500; 36415; 36600; 70450; 71045; 71275; 74176; 80053; 81001; 82375; 82805; 83050; 83605; 83735; 83880; 84100; 84484; 85025; 85380; 85384; 85610; 85730; 86738; 87040; 87070; 87077; 87205; 87449; 87637; 87641; 87899; 92950; 93005; 93306; 94002; 94640; 96365; 96367; 96375; 99291; A9270; C1751; J0171; J0613; J0692; J0696; J1720; J2060; J2250; J2270; J2543; J2919; J3010; J3370; J3480; J7030; J7040; J7120; Q9967